=== PATIENT | female | born 1940 | race Caucasian/White ===

== ENCOUNTER → 2016-10-02 | Outpatient (CLI) | payer BC, OTHER ==
[~2016-10-02] MED LIST: ADVIN25/60 INH; ASPCH81X PO; ASTN; FEXO1TAB45 PO; FISHOIL PO; FLUT50SP14 NAE; HYDR25TA5 PO; MONT1TAB3 PO; MXRAIN INH; PRT/20 PO; ROSU5TAB PO; TAMO20TA5 PO; VENL75TA4 PO
== END | disposition home or self-care (01) ==
LOC: C.MAMM 13:06
PROVIDERS: ATTEND Family Medicine
DX: N95.8 Other specified menopausal and perimenopausal disorders (principal)

== ENCOUNTER → 2017-01-11 | Outpatient (CLI) | payer BC, OTHER ==
--- NOTE | 2017-01-12 13:54 | MAMMOGRAPHY REPORT ---
BILATERAL DIGITAL SCREENING MAMMOGRAM TOMOSYNTHESIS WITH CAD: 01/11/2017 CLINICAL HISTORY: Asymptomatic. Personal history of breast cancer. TECHNIQUE: Breast tomosynthesis in addition to standard 2D mammography was performed. A 2-D right X CCL was also performed. Current study was also evaluated with a Computer Aided Detection (CAD) gretchen clements COMPARISON: Comparison is made to exams dated: 01/08/2016 mammogram, 01/02/2015 mammogram, 12/27/2013 verito mogram, 12/26/2012 mammogram, 11/19/2010 mammogram, and 12/18/2011 mammogram - [facility]. BREAST COMPOSITION: There are scattered areas of fibroglandular density in both breasts. FINDINGS: There is expected architectural distortion and surgical clips in the upper outer posterior right breast. There are other scattered benign-appearing calcifications and mild vascular calcificat ion in the breasts. No new suspicious mass, architectural distortion or cluster of microcalcificatio ns is seen. IMPRESSION: ACR BI-RADS CATEGORY 1: NEGATIVE There is no mammographic evidence of malignancy. A 1 year screening mammogram is recommended. The pa tient will receive written notification of the results. Approximately 10% of breast cancers are not detected with mammography. A negative mammographic report should not delay biopsy if a clinically suggestive mass is present. Haily Forte M.D. ay/:01/11/2017 16:47:53 Fish Frog Or Oyster Farmer: Reshma MIX)([place]), [facility] letter sent: Normal 1/2 BI-RADS Code: ACR BI-RADS Category 1: Negative
== END | disposition home or self-care (01) ==
LOC: C.MAMM 13:12
PROVIDERS: ATTEND Physician Assistant Medical
DX: Z12.31 Encounter for screening mammogram for malignant neoplasm of breast (principal); Z85.3 Personal history of malignant neoplasm of breast

== ENCOUNTER → 2017-02-17 | Outpatient (CLI) | payer BC, OTHER ==
[2015-09-24 14:00] VITALS: BP 118/71; PULSE 82
[2017-02-17 12:54] VITALS: BP 113/72; PULSE 72; TEMP 37.1; O2SAT 94
--- NOTE | 2017-02-17 15:56 | Radiation Oncology Follow-Up ---
Radiation Oncology Follow-Up Date of Visit Feb 17, 2017. Reason For Visit Annual follow-up Radiation Completion Date APBI 02/23/12 Diagnosis (1) DCIS (ductal carcinoma in situ) of breast Status: Resolved Onset Date: 08/25/2011 Permanent Comment: Status post abnormal right breast mammogram 08/25/2011 Status post stereotactic biopsy 08/25/2011 revealing DCIS Estrogen receptor positive, progesterone receptor positive Status post lumpectomy 12/19/2011 stage pTis NX Status post completion of radiation therapy utilizing accelerated partial breast treatment completed 02/23/2012 received 3850 cGy Last Edited By: Olga Lidia Valdovinos on Sep 24, 2015 14:43 Interim History She's been doing well over this past year. She has occasional mild discomfort of the breast. She has noted no masses and no change of the axilla. She's had no swelling of her arm. She is up-to-date on mammography. She will complete tamoxifen therapy in March. She had a mammogram 01/11/2017. There was no mammographic evidence of malignancy. One year screening mammogram was recommended. BI-RADS Category 1. Allergies Coded Allergies: Nickel (Verified Allergy, Severe, red itchy rash, 01/18/12) Codeine (Verified Allergy, Intermediate, HIVES, 01/17/12) Penicillins (Verified Allergy, Intermediate, HIVES, RASH, 01/17/12) Sulfa Drugs (Verified Allergy, Intermediate, HIVES, RASH, 01/17/12) Metformin (Unverified Adverse Reaction, Intermediate, hot spells per patient and feeling faint, 01/21/12) Home Medications Scheduled Azelastine Hcl (Astelin Nasal [place]), 2 SPRAYS NA QAM Fish Oil ([place]-3), 2 CAP PO DAILY Fluticasone Prop/Salmeterol (Advair Diskus 250/50 60 Dose), 1 PUFF INH DAILY Fluticasone Propionate (Flonase Nasal [place]), 1 SPRAY LYNDA evening Hydrochlorothiazide (Hydrochlorothiazide), 1 TAB PO DAILY Pantoprazole (Protonix), 20 MG PO DAILY Pirbuterol (Maxair Auto Inhaler *), 1 PUFF INH Q6HR PRN Rosuvastatin Calcium (Crestor), 5 MG PO HS Tamoxifen Citrate (Nolvadex), 20 MG PO DAILY Venlafaxine Hcl (Effexor), 150 MG PO DAILY Review of Systems Gastrointestinal: Symptoms: WNL Oral: Symptoms: No Problems Respiratory: Symptoms: WNL Other Respiratory: Nothing different for her due to her asthma Urinary: Symptoms: WNL Skin: Symptoms: No Problems Breast: Right Upper Arm Measurement: 33.5 Right Mid Arm Measurement: 25.5 Right Wrist Measurement: 16.5 Left Upper Arm Measurement: 31.0 Left Mid Arm Measurement: 24.3 Left Wrist Measurement: 16.3 Arm Dominence: Right Patient Cosmetic Evaluation: Good Physical Exam Vital Signs Date Time Temp Pulse Resp B/P (MAP) Pulse Ox O2 Delivery O2 Flow Rate FiO2 02/17/17 12:54 37.1 72 20 113/72 94 Pain: Pain Location: None Patient Pain Scale: 0 - 10 Initial Pain Intensity: 0.0 Fatigue: None General Appearance: no apparent distress Eyes: normal inspection, EOMI ENT: normal ENT inspection, hearing grossly normal Neck: no adenopathy, thyroid normal Respiratory/Chest: lungs clear, no respiratory distress, no accessory muscle use Breast: Breast examination reveals well-healed incision of the right breast upper-outer quadrant. There are no masses. There is very slight tenderness to palpation. She has telangiectasia along the healed incision line. There are no skin retractions or nipple changes. Using the [place] score cosmesis she has a good outcome. Left breast showed no masses or tenderness and no axillary adenopathy. Cardiovascular: regular rate, rhythm, no gallop, no murmur Abdomen: non tender Extremities: no pedal edema Neurologic/Psychiatric: no motor/sensory deficits, alert, normal mood/affect Skin: warm/dry Additional Studies BILATERAL DIGITAL SCREENING MAMMOGRAM TOMOSYNTHESIS WITH CAD: 01/11/2017 CLINICAL HISTORY: Asymptomatic. Personal history of breast cancer. TECHNIQUE: Breast tomosynthesis in addition to standard 2D mammography was performed. A 2-D right XCCL was also performed. Current study was also evaluated with a Computer Aided Detection (CAD) system. COMPARISON: Comparison is made to exams dated: 01/08/2016 mammogram, 01/02/2015 mammogram, 12/27/2013 mammogram, 12/26/2012 mammogram, 11/19/2010 mammogram, and mammogram - [facility]. BREAST COMPOSITION: There are scattered areas of fibroglandular density in both breasts. FINDINGS: There is expected architectural distortion and surgical clips in the upper outer posterior right breast. There are other scattered benign-appearing calcifications and mild vascular calcification in the breasts. No new suspicious mass, architectural distortion or cluster of microcalcifications is seen. IMPRESSION: ACR BI-RADS CATEGORY 1: NEGATIVE There is no mammographic evidence of malignancy. A 1 year screening mammogram is recommended. The patient will receive written notification of the results. Approximately 10% of breast cancers are not detected with mammography. A negative mammographic report should not delay biopsy if a clinically suggestive mass is present. Haily Forte M.D. ay/:01/11/2017 16:47:53 Chainstitch Elastic Attacher: Reshma MIX)([place]), [facility] letter sent: Normal 1/2 BI-RADS Code: ACR BI-RADS Category 1: Negative Dictated by: Haily Forte MD Signed by: Haily Forte MD Assessment & Plan Plan: Continue regular follow-up with her primary care physician. She'll complete her antiestrogen therapy in March. A follow-up appointment with our office was not given. She may call if she has any questions or concerns we' ll be happy to see her. Total Time In Follow-Up I spent 20 minutes speaking to the patient performing examination. I spent 15 minutes reviewing information in completing this note. Copy To Dallin Quiroga M.D. 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
== END | disposition home or self-care (01) ==
LOC: C.ONC 12:48
PROVIDERS: ATTEND Physician Assistant Medical
DX: Z08 Encounter for follow-up examination after completed treatment for malignant neoplasm (principal); Z92.3 Personal history of irradiation; Z85.3 Personal history of malignant neoplasm of breast

== ENCOUNTER → 2017-05-17 | Outpatient (CLI) | payer BC, OTHER ==
[~2017-05-17] MED LIST changes: -ASPCH81X PO; -FEXO1TAB45 PO; -MONT1TAB3 PO
--- NOTE | 2017-05-17 17:06 | DIAGNOSTIC IMAGING REPORT ---
CHEST 2 VIEWS ROUTINE HISTORY: 77 years-old Female HYPERLIPIDEMIA, GERD acute gastroesophageal reflux COMPARISON: Chest radiograph 05/05/2016 TECHNIQUE: PA and lateral views of the chest FINDINGS: Cardiac silhouette is mildly enlarged, unchanged. Atherosclerosis of the aorta. Surgical clips project over the lateral right hemithorax. There is no pneumothorax, pleural effusion, focal airspace consolidation or overt pulmonary edema. Bones of the chest are grossly intact. IMPRESSION: No acute cardiopulmonary process. The above report was generated using voice recognition software. It may contain grammatical, syntax or spelling errors. Electronically signed by: Brent Farah M.D. 05/17/2017 5:05 PM Dictated Date/Time: 05/17/2017 5:03 PM
== END | disposition home or self-care (01) ==
LOC: C.RAD1850 16:33
PROVIDERS: ATTEND Family Medicine
DX: E11.9 Type 2 diabetes mellitus without complications (principal); K21.9 Gastro-esophageal reflux disease without esophagitis; I10 Essential (primary) hypertension; E78.1 Pure hyperglyceridemia; E78.5 Hyperlipidemia, unspecified

== ENCOUNTER → 2017-06-03 | Outpatient (CLI) | payer BC, OTHER ==
--- NOTE | 2017-06-04 14:47 | PULMONARY FUNCTION TEST ---
PULMONARY FUNCTION TEST Spirometry is within the limits of normal. Repeat study done following bronchodilator showed no significant change in function. Diffusion is normal at 79% predicted.
== END | disposition home or self-care (01) ==
LOC: C.RC 12:15
PROVIDERS: ATTEND Family Medicine
DX: R05 Cough (principal)

== ENCOUNTER 2020-06-28 14:51 | Inpatient (IN) ==
--- NOTE | 2020-06-28 15:02 | Emergency Department Note ---
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 leg Qualifiers: Encounter type: initial encounter Qualified Code(s): S80.812A - Abrasion, left lower leg, initial encounter Fracture of tibial plateau, closed Qualifiers: Encounter type: initial encounter Laterality: left Qualified Code(s): S82.142A - Displaced bicondylar fracture of left tibia, initial encounter for closed fracture Avulsion fracture of calcaneus Qualifiers: Encounter type: initial encounter Fracture type: closed Laterality: left
--- NOTE | 2020-06-28 16:11 | XRay Report ---
XR ankle LT min 3V routine CLINICAL HISTORY: Left ankle pain status post trauma COMPARISON: None DISCUSSION: There is a plantar calcaneal spur. There is an age-indeterminate avulsion arising from th e anterior aspect of the distal tibia. There is an acute chip stress avulsion fracture which appears to arise from the lateral aspect of the calcaneus. This fragment measures 8 mm. There is lateral soft tissue edema. No fractures of the fibula are visualized. IMPRESSION: 1. 8 mm chip/avulsion fracture which appears to arise arise from the lateral margin of the calcaneus 2. Age-indeterminate chip/avulsion fracture arising from the anterior aspect of the distal tibia 3. Calcaneal spurring ACT 112: Negative or not required by law. Electronically signed by: Rick Colmenares M.D. 06/28/2020 4:09 PM
--- NOTE | 2020-06-28 16:12 | XRay Report ---
XR tibia fibula LT 2V CLINICAL HISTORY: Pain status post trauma COMPARISON: None. DISCUSSION: There is a comminuted intra-articular fracture of the proximal tibia which extends into t he lateral tibial plateau. There is associated fracture the proximal fibular tip. There is a chip/avu lsion fracture arising from the lateral process of the calcaneus. IMPRESSION: 1. Acute comminuted transverse/oblique fracture the proximal tibia with extension to the lateral tibi al plateau 2. Acute fracture of the proximal fibular tip 3. Acute fracture involving the lateral process of the calcaneus ACT 112: Negative or not required by law. Electronically signed by: Rick Colmenares M.D. 06/28/2020 4:11 PM
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
--- NOTE | 2020-06-28 16:16 | XRay Report ---
XR wrist LT min 3V routine CLINICAL HISTORY: Left wrist pain status post trauma COMPARISON: None. DISCUSSION: There is prominent dorsal soft tissue swelling. No acute fractures or dislocations are vi sualized. Degenerative changes are present the level the first carpal metacarpal joint and trapezium navicular articulation. IMPRESSION: 1. No acute fractures 2. Degenerative change 2. Soft tissue edema ACT 112: Negative or not required by law. Electronically signed by: Rick Colmenares M.D. 06/28/2020 4:15 PM
--- NOTE | 2020-06-28 16:17 | XRay Report ---
XR elbow LT min 3V routine CLINICAL HISTORY: Left elbow pain status post trauma COMPARISON: None. DISCUSSION: The fat pads are not displaced. No acute fractures or dislocations are visualized. There is soft tissue edema at the level of the olecranon. IMPRESSION: 1. No acute fractures 2. Soft tissue edema at the level of the olecranon. ACT 112: Negative or not required by law. Electronically signed by: Rick Colmenares M.D. 06/28/2020 4:16 PM
[2020-06-28] MEDS ORDERED: IBUPROFEN 200 MG TAB PO STA (16:44)
--- NOTE | 2020-06-28 18:49 | CT Scan Report ---
CT knee LT wo con CT DOSE: CLINICAL HISTORY: Fracture. Treatment planning study. TECHNIQUE: Helical images were acquired in the transverse plane. Sagittal and coronal reformatted faisal ges were acquired. A dose lowering technique was utilized adhering to the principles of ALARA. COMPARISON STUDY: X-ray study performed the same day FINDINGS: There is a lipohemarthrosis. No fractures of the distal femur are visualized. There is a co mminuted proximal tibial fracture with involvement of both the medial and lateral tibial plateaus. Th ere is acute comminuted fracture the proximal fibula. The medial tibial plateau fracture demonstrates 5 mm of articular fragment separation anteriorly. The lateral tibial plateau fracture demonstrates 3 mm of articular fracture fragment distraction laterally. IMPRESSION: 1. Comminuted tibial plateau fracture involving the medial and lateral tibial plateaus with mild patric cular distraction 2. Comminuted fracture of the proximal fibula. 3. Lipohemarthrosis. ACT 112: Negative or not required by law. Electronically signed by: Rick Colmenares M.D. 06/28/2020 6:48 PM
--- NOTE | 2020-06-28 18:54 | CT Scan Report ---
CT ankle LT wo con CT DOSE: CLINICAL HISTORY: Ankle pain status post trauma. Fracture. TECHNIQUE: Helical images were acquired in the transverse plane. Sagittal and coronal reformatted faisal ges were acquired. A dose lowering technique was utilized adhering to the principles of ALARA. COMPARISON STUDY: X-ray performed the same day FINDINGS: There is a tiny age-indeterminate avulsion fracture arising from the anterior aspect of the tibial plafond No distal fibular fractures are identified. There is a chip/avulsion fracture arising from the posterior medial aspect of the talus. There are comminuted chip/avulsion fracture arising from the lateral process of the calcaneus posteri arnie. The ankle mortise appears intact. There is a fracture of a plantar calcaneal spur. IMPRESSION: 1. Tiny chip/avulsion fracture arising from the anterior aspect the distal tibia, at the level of the tibial plafond 2. Chip/avulsion fracture arising from the posterior medial aspect of the talus 3. Comminuted chip/avulsion fracture arising from the lateral process of the calcaneus posteriorly 4. Fractured plantar calcaneal spur 5. The ankle mortise appears intact. The subtalar joint appears intact. ACT 112: Negative or not required by law. Electronically signed by: Rick Colmenares M.D. 06/28/2020 6:53 PM
--- NOTE | 2020-06-28 18:59 | CT Scan Report ---
CT foot LT wo con CT DOSE: 568.10 mGy.cm CLINICAL HISTORY: Left foot pain status post trauma. Fracture. Treatment planning. TECHNIQUE: Helical images were acquired in the transverse plane. Sagittal coronal reformatted images were acquired. A dose lowering technique was utilized adhering to the principles of ALARA. COMPARISON STUDY: X-ray study performed the same day. FINDINGS: Degenerative changes are present at the level of the tarsal metatarsal joints. There is no evidence of dislocation. Degenerative changes are also present the level of the first metatarsal phal angeal joint. There is a tiny chip fracture arising from the distal aspect of the anterior tibia at the level of th e tibial plafond. There is a fragmented calcaneal spur. There is a chip/avulsion fracture arising from the posterior medial aspect of the talus. There is a f racture involving the lateral calcaneal process posteriorly. IMPRESSION: 1. Fracture calcaneal spur 2. Chip/avulsion fracture arising from the posterior medial aspect the talus. 3. Fracture involving the lateral process of the calcaneus posteriorly 4. Tiny chip fracture arising from the distal aspect of the anterior tibia 5. Moderate degenerative changes the level of the tarsometatarsal joints. No acute midfoot fractures. No evidence of subluxation. ACT 112: Negative or not required by law. Electronically signed by: Rick Colmenares M.D. 06/28/2020 6:57 PM
[2020-06-28 19:47] LABS: Basophils # (auto) 0.02 K/uL (0-0.2); Basophils % (auto) 0.1 %; Eosinophils # (auto) 0.02 K/uL (0-0.5); Eosinophils % (auto) 0.1 %; Hematocrit (blood only) 38.2 % (37-47); Hemoglobin 12.9 g/dL (12.0-16.0); Immature Granulocytes # (auto) 0.04 K/uL (0.00-0.02); Immature Granulocytes % (auto) 0.3 %; Lymphocytes # (auto) 1.77 K/uL (1.2-3.4); Lymphocytes % (auto) 11.2 %; Mean Corpuscular Hemoglobin 31.3 pg (25-34); Mean Corpuscular Hgb Conc 33.8 g/dL (32-36); Mean Corpuscular Volume 92.7 fL (80-100); Mean Platelet Volume 10.3 fL (7.4-10.4); Monocytes # (auto) 1.67 K/uL (0.11-0.59); Monocytes % (auto) 10.6 %; Neutrophils # (auto) 12.24 K/uL (1.4-6.5); Neutrophils % (auto) 77.7 %; Platelet Count 275 K/uL (130-400); RDW Coefficient of Variation 12.8 % (11.5-14.5); RDW Standard Deviation 43.1 fL (36.4-46.3); Red Blood Count 4.12 M/uL (4.2-5.4); White Blood Count 15.76 K/uL (4.8-10.8)
[2020-06-28] MEDS ORDERED: ADENOSINE IV SOLN 3 MG/ML 2 ML VIAL IV STA (19:52)
[2020-06-28] MEDS ORDERED: SODIUM CHLORIDE 0.9% 1000ML 1,000 ML IV ONE (19:52)
[2020-06-28] MEDS ORDERED: ADENOSINE IV SOLN 3 MG/ML 2 ML VIAL IV ONE (19:55)
[2020-06-28 20:03] LABS: Alanine Aminotransferase 32 U/L (12-78); Albumin Level 3.6 gm/dl (3.4-5.0); Aspartate Aminotransferase 33 U/L (15-37); BUN Creatinine Ratio 26.5 (10-20); Blood Urea Nitrogen 23 mg/dl (7-18); Calcium 8.9 mg/dl (8.5-10.1); Carbon Dioxide 27 mmol/L (21-32); Chloride 108 mmol/L (98-107); Creatinine Clr Calc Pharmacy 54.9 ml/min; Est GFR (Non-African American) 64.7; Glucose 134 mg/dl (70-99); Potassium 3.9 mmol/L (3.5-5.1); Sodium 141 mmol/L (136-145)
[2020-06-28 20:10] LABS: Prothrombin Time 10.3 Seconds (9.0-12.0)
[2020-06-28 20:14] LABS: Albumin Globulin Ratio 0.9 (0.9-2); Alkaline Phosphatase 118 U/L (45-117); Bilirubin,Total 0.4 mg/dl (0.2-1); Creatine Kinase 362 U/L (26-192); Globulin 4.2 gm/dl (2.5-4.0); Total Protein 7.8 gm/dl (6.4-8.2); Troponin I < 0.015 ng/ml (0-0.045)
[2020-06-28] MEDS ORDERED: METOPROLOL TARTRATE 1 MG/ML VIAL IV STA (20:24)
[2020-06-28] MEDS ORDERED: OPTIRAY 320 125ml IV ONE (21:44)
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
[2020-06-29] MEDS ORDERED: CARBOHYDRATES FOR HYPOGLYCEMIA PO PRN (01:33)
[2020-06-29] MEDS ORDERED: ALUMINUM/MAGNESIUM SUSP 30 ML UDC PO PRN (01:33)
[2020-06-29] MEDS ORDERED: FLUTICASONE PROPIONATE NA SPR 16 GM BTL NAE PRN (01:33)
[2020-06-29] MEDS ORDERED: GLUCOSE 10 TABS/TUBE PO PRN (01:33)
[2020-06-29] MEDS ORDERED: ONDANSETRON INJ 2 MG/ML 2 ML VIAL IV PRN (01:33)
[2020-06-29] MEDS ORDERED: ENOXAPARIN INJ 40 MG/0.4 ML SYR SQ ONE (01:33)
[2020-06-29] MEDS ORDERED: ACETAMINOPHEN 325 MG TAB PO PRN (01:33)
[2020-06-29] MEDS ORDERED: GLUCOSE 40% GEL 15 GM TUBE PO PRN (01:33)
[2020-06-29] MEDS ORDERED: DEXTROSE 50% 50 ML SYRINGE IV PRN (01:33)
[2020-06-29] MEDS ORDERED: MoRPHine SULFATE 2 MG/ML CARP IV PRN (01:33)
[2020-06-29] MEDS ORDERED: GLUCAGON FOR INJ 1 MG VIAL SQ PRN (01:33)
[2020-06-29] MEDS ORDERED: ADENOSINE IV SOLN 3 MG/ML 2 ML VIAL IV STA (03:48)
[2020-06-29] MEDS: METOPROLOL TARTRATE 1 MG/ML VIAL IV PRN ×3 (03:53→15:18)
[2020-06-29] MEDS ORDERED: SODIUM CHLORIDE 0.9% 1000ML 250 ML IV ONE (03:57)
[2020-06-29] MEDS: KETOROLAC TROMETHAMINE 15 MG/ML VIAL IV PRN ×2 (06:17→19:19)
--- NOTE | 2020-06-29 07:31 | CT Scan Report ---
CT ANGIOGRAM OF THE CHEST CLINICAL HISTORY: Recent leg fracture. Tachycardia. Possible acute pulmonary embolism. COMPARISON STUDY: Chest x-ray dated 05/17/2017 TECHNIQUE: Following the IV administration of 117 mL of Optiray-320, CT angiogram of the thorax was p erformed from the thoracic inlet to the lung bases utilizing the pulmonary embolus protocol. Images a re reviewed in the axial, sagittal, and coronal planes. IV contrast was administered without complica tion. MIP imaging was performed. A dose lowering technique was utilized adhering to the principles o f ALARA. CT DOSE: 318.35 mGy.cm FINDINGS: There is partial visualization of an upper pole left renal cyst. There is a small hiatal hernia There are borderline enlarged mediastinal and right hilar lymph nodes. There was no evidence of thoracic aortic dilatation. There were no pulmonary artery filling defects to indicate acute pulmonary embolism. No pleural effusions are visualized. There are dependent lower lobe atelectatic changes. There is a bandlike opacity within the right lowe r lobe abutting the fissure likely atelectatic. There is a 4 mm right upper lobe subpleural nodule. T here is a wispy groundglass and interstitial opacity within the left upper lobe. This could be atelec tatic or infectious/inflammatory IMPRESSION: 1. No evidence of acute pulmonary embolism 2. Borderline enlarged mediastinal and hilar lymph nodes 3. There are few scattered interstitial and groundglass opacities as described above. While likely at electatic, a viral infection could potentially appear similar. ACT 112: Negative or not required by law. Electronically signed by: Rick Colmenares M.D. 06/29/2020 7:30 AM
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
[2020-06-29 08:40] LABS: Basophils # (auto) 0.01 K/uL (0-0.2); Basophils % (auto) 0.1 %; Eosinophils # (auto) 0.08 K/uL (0-0.5); Hematocrit (blood only) 31.1 % (37-47); Hemoglobin 10.5 g/dL (12.0-16.0); Immature Granulocytes # (auto) 0.01 K/uL (0.00-0.02); Immature Granulocytes % (auto) 0.1 %; Lymphocytes # (auto) 1.65 K/uL (1.2-3.4); Lymphocytes % (auto) 19.9 %; Mean Corpuscular Hgb Conc 33.8 g/dL (32-36); Mean Corpuscular Volume 91.7 fL (80-100); Mean Platelet Volume 10.2 fL (7.4-10.4); Monocytes # (auto) 1.18 K/uL (0.11-0.59); Monocytes % (auto) 14.2 %; Neutrophils # (auto) 5.38 K/uL (1.4-6.5); Neutrophils % (auto) 64.7 %; Platelet Count 244 K/uL (130-400); RDW Coefficient of Variation 12.9 % (11.5-14.5); RDW Standard Deviation 42.8 fL (36.4-46.3); Red Blood Count 3.39 M/uL (4.2-5.4); White Blood Count 8.31 K/uL (4.8-10.8)
[2020-06-29] MEDS: INSULIN ASPART 100 UNITS/ML 3 ML PEN SC SCH ×3 (08:49→17:29)
[2020-06-29] MEDS ORDERED: MULTIVITAMIN TAB PO SCH (09:00)
[2020-06-29] MEDS ORDERED: PANTOprazole 40 MG TAB PO SCH (09:00)
[2020-06-29] MEDS ORDERED: VENLAFAXINE HCL XR 150 MG CAPXR PO SCH (09:00)
[2020-06-29] MEDS ORDERED: POTASSIUM CHLORIDE CRTAB 20 MEQ TABCR PO SCH (09:00)
[2020-06-29] MEDS ORDERED: ENOXAPARIN INJ 40 MG/0.4 ML SYR SQ SCH (09:00)
[2020-06-29] MEDS ORDERED: CHOLECALCIFEROL 1,000 UNITS 25 MCG TAB PO SCH (09:00)
[2020-06-29] MEDS ORDERED: INSULIN GLARGINE SOLOSTAR 100 UNITS/ML 3 ML PEN SC SCH (09:00)
[2020-06-29] MEDS ORDERED: hydroCHLOROthiazide 25 MG TAB PO SCH (09:00)
[2020-06-29] MEDS ORDERED: TELMISARTAN 40 MG TAB PO SCH (09:00)
[2020-06-29] MEDS ORDERED: OMEGA-3 (PURIFIED FISH OIL) 1 GM CAP PO SCH (09:00)
[2020-06-29] MEDS ORDERED: PHARMACY GLYCEMIC MGMT CONSULT PRN (09:16)
[2020-06-29 09:23] LABS: BUN Creatinine Ratio 22.3 (10-20); Calcium 8.6 mg/dl (8.5-10.1); Creatinine Clr Calc Pharmacy 59.4 ml/min; Est GFR (African American) 85.7; Potassium 3.3 mmol/L (3.5-5.1)
[2020-06-29 09:26] LABS: Estimated Average Glucose 146 mg/dl; Hemoglobin A1C 6.7 % (4.5-5.6)
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
--- NOTE | 2020-06-29 13:31 | Electrocardiogram Report ---
Test Reason : Blood Pressure : / mmHG Vent. Rate : 142 BPM Atrial Rate : 142 BPM P-R Int : 140 ms QRS Dur : 078 ms QT Int : 304 ms P-R-T Axes : 119 000 109 degrees QTc Int : 467 ms Sinus tachycardia Nonspecific ST and T wave abnormality Abnormal ECG When compared with ECG of 12-JAN-2012 12:14, Vent. rate has increased BY [address] now depressed in Inferior leads ST now depressed in Anterolateral leads Confirmed by Roni Wilson ([id number]) on 06/29/2020 1:31:26 PM Referred By: REFERRED SELF Confirmed By:Roni Wilson
--- NOTE | 2020-06-29 13:37 | Electrocardiogram Report ---
Test Reason : Blood Pressure : / mmHG Vent. Rate : 131 BPM Atrial Rate : 133 BPM P-R Int : 000 ms QRS Dur : 080 ms QT Int : 322 ms P-R-T Axes : 000 007 176 degrees QTc Int : 475 ms Sinus tachycardia with 1st degree A-V block Abnormal ECG When compared with ECG of 28-JUN-2020 19:08, (unconfirmed) T wave inversion now evident in Anterolateral leads Confirmed by Roni Wilson ([id number]) on 06/29/2020 1:37:27 PM Referred By: REFERRED SELF Confirmed By:Roni Wilson
--- NOTE | 2020-06-29 14:07 | XCELERA ---
[id number]
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
[2020-06-29] MEDS ORDERED: METOPROLOL SUCC 25MG EXT REL TAB PO ONE (18:30)
--- NOTE | 2020-06-29 19:51 | Billing Data ---
Date of Service June 29, 2020 Coding Level of Care Code 94152 Initial Inpt Care Lvl 3
--- NOTE | 2020-06-29 20:01 | Billing Data ---
Date of Service June 29, 2020 Coding Level of Care Code D/C Day Management >30 mins
[2020-06-29] MEDS ORDERED: ROSUVASTATIN CALCIUM 10 MG TAB PO SCH (21:00)
[2020-06-29] MEDS ORDERED: METOPROLOL SUCC 25MG EXT REL TAB PO SCH (21:00)
== END 2020-06-29 19:56 | disposition short-term general hospital (02) | DRG 309 ==
LOC: ED 14:51 → 2N 06-29 00:09 → INTOOBSV 06-29 00:09 → OBSVTOIN 06-29 00:09 → SUATTDRO 06-29 00:09 → 2N 06-29 01:31